=== PATIENT | male | born 1940 | race Caucasian/White ===

== ENCOUNTER → 2018-05-11 | Outpatient (REF) | payer MEDICARE, OTHER ==
[2018-05-11 19:32] LABS: RETIC HEMOGLOBIN EQUIVALENT 35.4 pg (24-36); RETICULOCYTE # 52.2 10^9/L (17-77); RETICULOCYTE % 1.2 % (0.5-1.5)
[2018-05-11 19:40] LABS: FERRITIN 60 NG/ML (26-388); IRON (FE) 109 UG/DL (65-175); PERCENT SATURATION 34.2 % (19.7-50.0); TOTAL IRON BINDING CAPACITY 319 UG/DL (250-450)
[2018-05-11 19:49] LABS: FOLATE > 24.0 NG/ML; VITAMIN B12 LEVEL 755 PG/ML
== END ==
LOC: M LAB REF 19:06
DX: D64.9 Anemia, unspecified (principal)
CPT/HCPCS: 82746

== ENCOUNTER → 2019-06-06 | Outpatient (CLI) | payer MEDICARE, OTHER ==
[~2019-06-06] MED LIST: ASPI81TA85 PO; ATOR1TAB21 PO; D32000CA PO; HYDR12.55 PO; IRBE150T12 PO; METO1TAB33 PO; OMEP-218 PO; TAMS1CAP17 PO
--- NOTE | 2019-06-08 15:42 | RADONC ---
RADIATION ONCOLOGY CONSULTATION NOTE DATE: 06/06/2019 CHART NUMBER: [id number] DIAGNOSIS: Prostate cancer. STAGE: II B, [id number], [place] score 7 (3-4), grade group II, PSA 5.82. ECOG PERFORMANCE STATUS: 0. CONSULTATION NOTE: Mr. Castillo is a very pleasant, 79-year-old white male with the diagnosis of a stage II B, [id number] moderate to poorly differentiated, Brandon score 7 (3-4) adenocarcinoma of the prostate with initial PSA level of 5.82 who is presenting to us today for discussion of definitive external beam radiation therapy with IMRT/IGRT. HISTORY OF PRESENT ILLNESS: The patient was in his usual state of health who was found to have an elevated PSA level, which reached 5.82 on 02/01/2019. On 05/11/2019, the patient underwent prostatic needle biopsy and pathology revealed a Brandon score 7 3-4) adenocarcinoma of the prostate. Prostatic adenocarcinoma involved both left and right lobe sections of the prostate and perineural invasion was identified. The patient had a long discussion with Dr. Lawrence and has decided he wanted radiation therapy rather than surgery and is now presenting for discussion of IMRT radiation therapy. PAST MEDICAL HISTORY: The patient's past medical history is positive for arthritis and hypertension. 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 He has hypercholesterolemia. In the past, he had an appendectomy and a cholecystectomy. ALLERGIES: The patient has NO KNOWN DRUG ALLERGIES. SOCIAL HISTORY: The patient had smoked two packs of cigarettes per day for approximately 19. He quit approximately 40 years ago. He does not abuse alcohol. FAMILY HISTORY: The patient's family history is positive for a mother with stomach cancer, a sister with breast cancer and two brothers with lung cancer. REVIEW OF SYSTEMS: The patient's review of systems is positive for some hearing loss and decreased energy but is otherwise noncontributory. Denies nausea, vomiting, fevers, chills, night sweats, diplopia, headaches, anxiety or depression, anorexia, weight loss, visual disturbances, chest pain, urinary or bowel difficulties, bone pain, or neurological problems. PHYSICAL EXAMINATION: The patient is a well-developed, well-nourished male in no acute distress. HEENT exam is normocephalic, atraumatic. Extraocular movements are intact. There is no palpable cervical, supraclavicular, infraclavicular, axillary, or inguinal lymphadenopathy present. Lungs are clear to auscultation and percussion. Heart has a regular rate and rhythm. Abdomen is benign with no hepatosplenomegaly, masses, or tenderness. Rectal examination reveals a normal anal sphincter tone. His prostate is smooth with no evidence of nodularity. Skeletal examination reveals no tenderness to pressure or percussion of the bony skeleton. Extremities reveal no clubbing, cyanosis, or edema. Neurologic exam is grossly intact, as is the remainder of the physical examination. MEDICAL NECESSITY: IMRT/IGRT is clinically indicated for the highly conformal dose planning required. The target volume is in close proximity to critical structures, such as the rectum, bladder, small bowel, and femoral heads. The volume of interest must be covered with narrow margins to adequately protect immediately adjacent structures. The plan requires interpretation of complex testing such as CT localization. As noted above, special planning (IMRT) and localizing (IGRT) is required and essential to maximally protect sensitive normal tissue structures which cannot be accomplished using conventional 3-dimensional planning. Clearly, the patient is a candidate for external beam radiation therapy and I have so informed him. I have discussed with the patient in detail the potential benefits as well as possible acute and chronic sequelae of external beam radiation therapy. We discussed logistics of treatment planning, simulation and subsequent fractionated daily radiation treatments. We are sending the patient back to Dr. Lawrence for placement of fiducial markers and radiation treatment planning will begin subsequently. Thank you for allowing us to participate in the care of this very pleasant gentleman. If I could be of any further assistance or provide you any information, please free to contact me anytime. As always, warm regards.
== END ==
LOC: M ONCR 08:47
PROVIDERS: ATTEND Radiology Radiation Oncology
DX: C61 Malignant neoplasm of prostate (principal)

== ENCOUNTER → 2019-08-17 | Outpatient (RCR) | payer MEDICARE, OTHER ==
--- NOTE | 2019-07-19 08:01 | RADONC ---
RADIATION ONCOLOGY SIMULATION NOTE DATE: 07/18/2019 CHART NUMBER: [id number] Mr. Castillo was taken to the CT scan for CT simulation of his prostate field. CT was accomplished without difficulty or discomfort. Radiation treatment planning is underway and radiation treatments will begin subsequently. An immobilization device was created and will be used throughout the course of treatment. It was created without difficulty or discomfort. I was physically present throughout the course of CT simulation.
--- NOTE | 2019-07-31 16:28 | RADONC ---
RADIATION ONCOLOGY PROGRESS NOTE DATE: 07/31/2019 CHART NUMBER: [id number] PROGRESS NOTE: Mr. Castillo is presently at a dose of 900 cGy to his prostate and is tolerating treatments quite well at this point with no complaints related to his radiation therapy. He is having no significant urinary or bowel difficulties and no bone pain. REVIEW OF SYSTEMS: The patient's review of systems is noncontributory. Denies nausea, vomiting, fevers, chills, night sweats, diplopia, headaches, anxiety or depression, anorexia, weight loss, visual disturbances, chest pain, urinary or bowel difficulties, bone pain, or neurological problems. PHYSICAL EXAMINATION: The patient's skin is in good condition with no evidence of radiation change present. There is no moist or dry desquamation. The remainder of his physical exam remains unchanged. Mr. Castillo is tolerating treatments quite well and radiation will continue as scheduled.
[2019-08-03 16:09] LABS: APPEARANCE, URINE CLEAR (CLEAR); BACTERIA, URINE AUTO NEGATIVE (NEGATIVE); BILIRUBIN, URINE AUTO NEGATIVE (NEGATIVE); BLOOD, URINE BLOOD NEGATIVE (NEGATIVE); COLOR, URINE YELLOW (YELLOW); GLUCOSE, URINE (UA) AUTO NEGATIVE (NEGATIVE); KETONE, URINE AUTO NEGATIVE (NEGATIVE); LEUKOCYTE ESTERASE, URINE AUTO NEGATIVE (NEGATIVE); MUCUS, URINE SMALL (NEGATIVE); NITRITE, URINE AUTO NEGATIVE (NEGATIVE); PROTEIN, URINE AUTO NEGATIVE (NEGATIVE); RBC, URINE AUTO 2 /HPF (0-3); SQUAMOUS EPITHELIAL CELL UR AU 0 /HPF (0-6); UROBILINOGEN, URINE AUTO 0.2 mg/dL (0.0-2.0); WBC, URINE AUTO 2 /HPF (0-3)
--- NOTE | 2019-08-12 08:34 | RADONC ---
RADIATION ONCOLOGY PROGRESS NOTE DATE: 08/10/2019 CHART NUMBER: [id number] DIAGNOSIS: Prostate cancer. STAGE: IIB, [id number], [place] score 7 (3+4), grade group 2, PSA 5.82. ECOG PERFORMANCE STATUS: 0 PROGRESS NOTE: Mr. Castillo, with a diagnosis of adenocarcinoma of the prostate, was asked to see us earlier this week. He was experiencing severe, fairly agonizing pain and having difficulty sleeping. We initiated a course of prednisone along with initiating Flomax both in the morning and in the evening. He was, prior to that, taking Flomax in the morning time and really getting no significant relief from this medication. Therefore, in addition to increasing the Flomax to morning and evening, we started a course of prednisone 5 mg to be taken with his Flomax in the morning and in the evening. He was asked to see us yesterday on 08/10 2019, and he had developed significant dysuria but not until after 8 hours after having taken his medications. I instructed him to increase the prednisone to three times a day or every 8 hours. He did not increase the Flomax but left this medication at one tablet in the morning and in the evening. In addition, I suggested that he take Pyridium since now he was having severe burning in the urine. He was at least encouraged that he got 8 hours of relief with the utilization of the prednisone, but after 8 hours, again, he was back to having pain upon urination and severe agonizing burning. Now, he is scheduled to take Flomax, a 5 mg tablet of prednisone, and his Pyridium in the a.m. and, again, the prednisone in the p.m. as well as Flomax but in the midday to take his prednisone and initiate Pyridium. If this controls his burning and hopefully the other issues he was experiencing with pain and frequent urination, then we will keep him on this regimen for approximately 10 days and then wean him off the dexamethasone. If his burning persists, then he should probably increase the Pyridium but, again, I instructed him to not alter the medication anymore until he sees if he is going to get significant relief. It appears that the initiation of the prednisone did allow him to have at least 8 hours of relief which is significant. The only a added medications were an additional 5 mg of prednisone in the midday and Pyridium.
--- NOTE | 2019-08-15 07:31 | RADONC ---
RADIATION ONCOLOGY PROGRESS NOTE DATE:08/14/2019 CHART NUMBER: [id number] Mr. Castillo is presently at a dose of 2700 cGy to his prostate and continues to have some urinary obstructive symptoms. He is presently taking prednisone three times a day as well as Pyridium twice a day and his Flomax 0.4 mg once a day. The patient reports that he is urinating at this time and does feel like he is emptying his bladder. In light of this we will continue with the present dosage scheduled. The patient's review of systems again is positive for some urinary obstructive symptoms which is being managed with Pyridium, Flomax and prednisone. His review of systems is otherwise noncontributory. He denies nausea, vomiting, fevers, chills, night sweats, diplopia, headaches, anxiety or depression, anorexia, weight loss, visual disturbances, chest pain, urinary or bowel difficulties, bone pain, or neurological problems. PHYSICAL EXAMINATION: The patient's skin is in good condition with no evidence of moist or dry desquamation. The remainder of his physical exam remains unchanged. Mr. Castillo is tolerating treatments quite well and radiation will continue as scheduled.
[~2019-08-17] MED LIST changes: +PRED5TA PO
== END ==
LOC: M ONCR 07-18 13:35
PROVIDERS: ATTEND Radiology Radiation Oncology
DX: C61 Malignant neoplasm of prostate (principal); Z79.899 Other long term (current) drug therapy

== ENCOUNTER 2019-09-13 14:50 | Outpatient (RCR) | payer MEDICARE, OTHER ==
--- NOTE | 2019-08-22 07:10 | RADONC ---
RADIATION ONCOLOGY PROGRESS NOTE: DATE: 08/21/2019 CHART NUMBER: [id number] Mr. Rishi Castillo with a diagnosis of adenocarcinoma of the prostate is currently receiving local regional radiotherapy and he has achieved a dose of 3600 cGy. He appears to be tolerating his radiotherapy fairly well at the current time. He was complaining of significant obstructive symptoms and pain. We started him on Flomax, prednisone 5 mg t.i.d., and some peridium and the combination of medications has helped him significantly. He has asked me for a refill of the prednisone and I will accommodate him. Otherwise, he has no new problems related to his disease or treatments. He specifically denies any nausea, vomiting, diarrhea, dysuria, hematuria or blood per rectum. His energy level is adequate. He is able to maintain most day-to-day activities. EXAMINATION FINDINGS: The skin within the irradiated volume shows neither erythema nor desquamation. There is no palpable peripheral lymphadenopathy in the cervical, supraclavicular, axillary or inguinal lymph node chains. The lungs are clear. Remainder of the physical examination is unchanged. IMPRESSION: Tolerating therapy well. PLAN: Treatments to continue with same medication and same radiation regimen.
--- NOTE | 2019-08-29 07:33 | RADONC ---
RADIATION ONCOLOGY PROGRESS NOTE DATE: 08/28/2019 CHART NUMBER: 19-125 Mr. Castillo is presently at a dose of 4500 cGy to his prostate and is tolerating treatments quite well at this point with no significant difficulties related to his radiation therapy. He is complaining of leg cramps at night. The patient's review of systems is positive for nightly leg cramps as well as urinary frequency at night but is otherwise noncontributory. He denies nausea, vomiting, fevers, chills, night sweats, diplopia, headaches, anxiety or depression, anorexia, weight loss, visual disturbances, chest pain, urinary or bowel difficulties, bone pain, or neurological problems. PHYSICAL EXAMINATION: The patient's skin is in good condition with no evidence of moist or dry desquamation. The remainder of his physical exam remains unchanged. Mr. Castillo is tolerating treatments quite well and radiation will continue as scheduled.
--- NOTE | 2019-09-05 11:24 | RADONC ---
RADIATION ONCOLOGY PROGRESS NOTE DATE: 09/04/2019 CHART NUMBER: [id number] Mr. Castillo is presently at a dose of 5400 cGy to his prostate and seminal vesicles and is tolerating treatments quite well at this point with no significant difficulties related to his radiation therapy. His urinary and bowel problems have improved. He has reduced the number prednisone pills he is taking from three to two, and overall he is feeling better. REVIEW OF SYSTEMS: The patient's review of systems is noncontributory. He denies nausea, vomiting, fevers, chills, night sweats, diplopia, headaches, anxiety or depression, anorexia, weight loss, visual disturbances, chest pain, urinary or bowel difficulties, bone pain or neurological problems. PHYSICAL EXAMINATION: The patient's skin is in good condition with no evidence of moist or dry desquamation. The remainder of his physical exam remains unchanged. Mr. Castillo is tolerating treatments quite well and radiation will continue as scheduled.
--- NOTE | 2019-09-13 09:07 | RADONC ---
RADIATION ONCOLOGY PROGRESS NOTE DATE OF SERVICE: 09/11/2019 CHART NUMBER: [id number] Mr. Castillo is presently at a dose of 6300 cGy to his prostate and is tolerating treatments quite well at this point with no complaints related to his radiation therapy. He is having no urinary or bowel difficulties and no bone pain. The patient's review of systems is noncontributory. Denies nausea, vomiting, fevers, chills, night sweats, diplopia, headaches, anxiety or depression, anorexia, weight loss, visual disturbances, chest pain, urinary or bowel difficulties, bone pain, or neurological problems. PHYSICAL EXAMINATION The patient's skin is in good condition with no evidence of moist or dry desquamation. The remainder of his physical exam remains unchanged. Mr. Castillo is tolerating treatments quite well and radiation will continue as scheduled.
== END 2019-09-16 ==
LOC: M ONCR 14:50
PROVIDERS: ATTEND Radiology Radiation Oncology
DX: C61 Malignant neoplasm of prostate (principal)

== ENCOUNTER 2019-09-26 07:52 | Outpatient (RCR) | payer MEDICARE, OTHER ==
--- NOTE | 2019-09-20 07:24 | RADONC ---
RADIATION ONCOLOGY DATE: 09/19/2019 Mr. Castillo is a 79-year-old gentleman who carries a diagnosis of prostate CA. He has currently received a dose of 7020 cGy in 30 fractions. He tolerates treatment very well without unusual side effects except nocturia four times, however that is his normal. His bowel movements are regular. Treatment will continue as planned. MTDD
--- NOTE | 2019-09-26 00:19 | RADONC ---
RADIATION ONCOLOGY PROGRESS NOTE DATE: 09/25/2019 CHART NUMBER: 19-125 Mr. Castillo is presently at a dose of 7740 cGy to his prostate and overall is tolerating treatments quite well with no significant difficulties related to his radiation therapy other than some fatigue, as well as increased stool frequency and urgency. The patient's review of systems is positive for some fatigue and increased stool urgency but is otherwise generally noncontributory. He denies nausea, vomiting, fevers, chills, night sweats, diplopia, headaches, anxiety or depression, anorexia, weight loss, visual disturbances, chest pain, urinary difficulties, bone pain, or neurological problems. PHYSICAL EXAMINATION: The patient's skin is in good condition with no evidence of moist or dry desquamation. The remainder of his physical exam remains unchanged. Mr. Castillo is tolerating treatments quite well and radiation will continue as scheduled.
--- NOTE | 2019-09-26 09:58 | RADONC ---
RADIATION ONCOLOGY TREATMENT SUMMARY DATE OF SERVICE: 09/26/2019 CHART NUMBER: [id number] DIAGNOSIS: Prostate cancer. STAGE: Stage II B, [id number], [place] score 7 (3+4) grade group II, PSA 5.82. ECOG PERFORMANCE STATUS: 0. TREATMENT SUMMARY: Mr. Castillo is a very pleasant 79-year-old white male with the diagnosis of a stage II B, [id number] moderate to poorly differentiated Gotebo score 7 (3+4) adenocarcinoma of prostate with initial PSA level of 5.82 who presented to us for consideration of definitive external beam radiation therapy with IMRT / IGRT. We treated the patient to his prostate for a total dose of 7920 cGy delivered in 44 fractions of 180 cGy each over 62 elapsed days from 07/25/2019 through 09/26/2019. The patient's prostate was treated on the linear accelerator utilizing 6 MV photon beam via IMRT / IGRT. We initially treated the prostate and seminal vesicles to a dose of 5400 cGy subsequently delivered in additional 2520 cGy to the prostate itself bringing it to a total dose once again of 7920 cGy. Mr. Castillo tolerated his treatments quite well and was able to complete therapy as prescribed without difficulties. I have scheduled the patient to see me again in 1 month for further followup. He will also continue to be followed by his other physicians as well. cc: MD Jacob Cramer MD
== END 2019-10-17 ==
LOC: M ONCR 07:52
PROVIDERS: ATTEND Radiology Radiation Oncology
DX: C61 Malignant neoplasm of prostate (principal)

== ENCOUNTER → 2020-02-26 | Outpatient (REF) | payer MEDICARE, OTHER ==
[~2020-02-26] MED LIST changes: -IRBE150T12 PO; +IRBE150T7 PO
[2020-02-26 18:02] LABS: FERRITIN 204 NG/ML (26-388); IRON (FE) 89 UG/DL (65-175); PERCENT SATURATION 30.6 % (19.7-50.0); TOTAL IRON BINDING CAPACITY 291 UG/DL (250-450)
[2020-02-26 18:06] LABS: FOLATE > 24.0 NG/ML; VITAMIN B12 LEVEL 654 PG/ML
== END ==
LOC: M LAB REF 16:58
PROVIDERS: ATTEND Family Medicine
DX: R53.83 Other fatigue (principal); D64.9 Anemia, unspecified

== ENCOUNTER → 2020-04-02 | Outpatient (CLI) | payer MEDICARE, OTHER ==
--- NOTE | 2020-04-04 11:25 | RADONC ---
RADIATION ONCOLOGY FOLLOWUP NOTE DATE: 04/02/2020 CHART #: [id number] DIAGNOSIS: Prostate cancer. STAGE: II B, T2c, N0, M0, [place] score 7 (3-4), grade group II, PSA 5.82. ECOG PERFORMANCE STATUS: 0. FOLLOWUP NOTE: Mr. Castillo is a very pleasant, 80-year-old white male with the diagnosis of a stage II B, T2c, N0, M0, moderate to poorly differentiated Brandon score 7 (3-4) adenocarcinoma of the prostate with initial PSA level of 5.82 who is presenting to us today for routine followup visit 6 months post completion of external beam radiation therapy. The patient presents today reporting that he is doing quite well with no complaints at this time related to his radiation therapy or disease. He has no urinary or bowel difficulties and no bone pain. REVIEW OF SYSTEMS: The patient's review of systems is noncontributory. Denies nausea, vomiting, fevers, chills, night sweats, diplopia, headaches, anxiety or depression, anorexia, weight loss, visual disturbances, chest pain, urinary or bowel difficulties, bone pain, or neurological problems. PHYSICAL EXAMINATION: Physical examination was deferred at this point secondary to COVID-19 precautions. ASSESSMENT: The patient is clinically KWAKU at this time and will be seen by us again in July for further followup. We had initially planned on seeing him in , but the patient is leaving for [place] in mid July. A new PSA will be done at that time. A recent PSA last week was noted to be less than 0.13. I do not actually have a copy of the report at this time, we are attempting to obtain it from Dr. Elena's office. cc: MD Jacob Cramer MD
== END ==
LOC: M ONCR 14:24
PROVIDERS: ATTEND Radiology Radiation Oncology
DX: C61 Malignant neoplasm of prostate (principal)

== ENCOUNTER → 2020-07-24 | Outpatient (CLI) | payer MEDICARE, OTHER ==
[~2020-07-24] MED LIST changes: -ASPI81TA85 PO; +ASPI81TA86 PO
--- NOTE | 2020-07-24 14:35 | RADONC ---
Radiation Oncology Hx/FUP Radiation Oncology Hx/FUP Date of Service: Jul 24, 2020 Pt Identifier Rishi Castillo is a 80 year old male seen for a followup visit today at the department of radiation oncology for a history of favorable intermediate risk prostate cancer T2b Brandon 3+4 PSA 5.6 he completed EBRT to 76.2 Gy in 37 fractions on 09/26/19. Diagnosis/Treatment History Oncologic History As above Interval History Feels well. On flomax 0.8 mg QHS from PCP. Nocturia 1-2x. No daytime frequency or urgency. No diarrhea or BRBPR. Has regular daily BM. Has no erectile function, not bothersome to him. Energy level good appetite and weight stable. Going to [place] end of month. Seeing urologist next spring. Current Therapy Surveillance Stage Favorable intermediate risk prostate cancer Social History: Former smoker quit 45 years ago. Former drinker, quit drinking 6 years ago. Allergies / Meds Allergies: Coded Allergies: No Known Allergies (Verified , 04/23/03) Uncoded Allergies: NKA (Allergy, Unknown, 04/23/03) Home Meds Active Scripts Prednisone (Prednisone) 5 Mg Tablet, 5 MG PO Q8H, #40 TAB Prov:SANTOSH EMMANUEL MD 08/11/19 Reported Medications Omeprazole (Omeprazole) 20 Mg Capsule., 1 CAP PO DAILY for 30 Days, #30 CAP 06/06/19 Cholecalciferol (Vitamin D3) (Vitamin D3) 2,000 Unit Capsule, 1 CAP PO DAILY for 30 Days, #30 CAP 06/06/19 Aspirin (Aspir 81) 81 Mg Tablet., 1 TAB PO DAILY for pain for 30 Days, #30 TAB 06/06/19 Metoprolol Succinate (Metoprolol Succinate) 100 Mg Tab.er.24h, 100 MG PO DAILY 06/06/19 Tamsulosin Hcl (Tamsulosin HCl) 0.4 Mg Capsule, 0.4 MG PO DAILY 06/06/19 Atorvastatin Calcium (Atorvastatin Calcium) 20 Mg Tablet, 20 MG PO DAILY 06/06/19 Irbesartan (Irbesartan) 150 Mg Tablet, 150 MG PO DAILY 06/06/19 Hydrochlorothiazide (Hydrochlorothiazide) 12.5 Mg Tablet, 12.5 MG PO DAILY 06/06/19 Review of Systems Review of Systems Constitutional: Denies: ROS Unabtainable, Chills, Fever, Malaise, Night Sweats, Weakness, Fatigue, Weight Loss, Lethargy, Normal appetite, Other symptoms Eyes: Denies: Pain, Vision change, Conjunctivae inflammation, Eyelid inflammation, Redness, Other HEENT: Denies: Head Aches, Ear Pain, Dysphagia, Sinus Congestion, Post Nasal Drip, Sore Throat, Epistaxis, Other Symptoms Skin: Denies: Rash, Lesions, Jaundice, Bruising, Other Breast: Denies: New Breast Lumps / Masses, Nipple Retraction, Nipple Discharge, Breast Skin Changes, Breast Pain or Tenderness, Other Breast Complaints Pulmonary: Denies: Dyspnea, Cough, Pleuritic Chest Pain, Other Symptoms Cardiovascular: Denies: Chest Pain, Palpitations, Orthopnea, Paroxysmal Noc. Dyspnea, Edema, Lt Headedness, Other Symptoms Gastrointestinal: Denies: Nausea, Vomiting, Abdominal Pain, Diarrhea, Constipation, Melena, Hematochezia, Other Symptoms Genitourinary: Denies: Dysuria, Frequency, Incontinence, Hematuria, Retention, Other Symptoms Hematologic: Denies: Bruising, Bleeding Excessively, Petecchia, Purpura, Enlarged Lymph Nodes, Other Hematologic Endocrine: Denies: Polydipsia, Polyphagia, Polyuria, Heat Intolerance, Cold Intolerance, Other Endocrine Sx Musculoskeletal: Denies: Neck pain, Shoulder pain, Arm pain, Back pain, Hand pain, Leg pain, Foot pain, Joint pain, Muscle pain, Spasms, Gout, Joint sweling, Muscle stiffness, Midthoracic pain, Other Psych: Denies: Mood Normal, Anxiety, Depression, Memory Issues, Thoughts of Self Harm, Anger, Thoughts of harming Other, Other Psych Physical Examination Vital Signs Wt 165lb T 98 P 78 RR 18 BP 126/74 O2 98% Pain 1 Fatigue 0 General Exam: Positive: Alert, Cooperative, No Acute Distress Eye Exam: Positive: PERRLA, EOMI ENT EXAM: Positive: Atraumatic Neck Exam: Positive: Supple Chest Exam: Positive: Clear to auscultation, Normal air movement Heart Exam: Positive: Rate Normal, Regular Rhythm Abdomen Exam: Positive: Normal bowel sounds, Soft; Negative: Tenderness Extremity Exam: Negative: Edema Skin Exam: Positive: Nl turgor and temperature Neuro Exam: Positive: Normal Gait, Normal Speech, Cranial Nerves 3-12 NL Psych Exam: Positive: Mental status NL, Mood NL; Negative: Anxiety Other Physical Findings Deferred exam d/t stable low PSA Diagnostic and Laboratory Diagnostic Review Radiologic images, relevant labs and pathology reports were personally reviewed and discussed with Mr. Castillo. 07/19/20 PSA 0.13 Assessment and Plan Impression Assessment Mr. Castillo is a 80 year old male seen for a followup visit today at the department of radiation oncology for a history of favorable intermediate risk prostate cancer T2b Brandon 3+4 PSA 5.6 he completed EBRT to 76.2 Gy in 37 fractions on 09/26/19. He is doing well with stable nocturia as his only urinary complaint. He has no late RT effects with respect to GI/ function. His PSA remains low. He will see his urologist upon returning to [facility] this Spring, thus I will see him in 1 year with a PSA check. Plan 1 year with PSA Mr. Castillo was encouraged to call with questions or concerns in the interim period. ABIMAEL TITUS MD Jul 24, 2020 14:35
== END ==
LOC: M ONCR 12:43
PROVIDERS: ATTEND General Practice
DX: C61 Malignant neoplasm of prostate (principal)

== ENCOUNTER → 2021-02-28 | Outpatient (CLI) | payer MEDICARE, OTHER | LOC: M LABSMTC 09:38 | PROVIDERS: ATTEND Anesthesiology Pain Medicine | DX: Z20.828 Contact with and (suspected) exposure to other viral communicable diseases (principal); Z11.59 Encounter for screening for other viral diseases ==

== ENCOUNTER → 2021-05-24 | Outpatient (CLI) | payer MEDICARE, OTHER ==
[~2021-05-24] MED LIST changes: +ASPI81CH33 PO; +CHOL25TA2 PO; +CVS2500C PO; +FAMO1TAB11 PO; +IRBE75TA4 PO; +METO1TAB7 PO
== END ==
LOC: M LABSMTC 09:36
PROVIDERS: ATTEND Anesthesiology
DX: Z01.812 Encounter for preprocedural laboratory examination (principal)

== ENCOUNTER 2021-05-29 09:24 | Day surgery (SDC) | payer MEDICARE, OTHER ==
[~2021-05-29] VITALS: Ht 160 cm; Wt 70.3 kg
[2021-05-29] MEDS ORDERED: propofoL 200 MG/20 ML VIAL As Ordered ONE (10:25)
[2021-05-29] MEDS ORDERED: LIDOCAINE 2% 100MG/5ML SDV (FOR ANES.) As Ordered ONE (10:25)
--- NOTE | 2021-05-29 10:55 | ROOR ---
Patient Name: Rishi Castillo Procedure Date: 05/29/2021 10:42 AM Date of : 1940 Age: 81 Room: [facility] Gender: Male Note Status: Finalized Procedure: Upper GI endoscopy Indications: Suspected esophageal reflux Providers: Tyrese Morris Jr, MD Referring MD: Jacob Elena MD Requesting Provider: Medicines: Propofol per Anesthesia Complications: No immediate complications. Procedure: Pre-Anesthesia Assessment: - Prior to the procedure, a History and Physical was performed, and patient medications and allergies were reviewed. The patient is competent. The risks and benefits of the procedure and the sedation options and risks were discussed with the patient. All questions were answered and informed consent was obtained. Patient identification and proposed procedure were verified by the physician and the nurse in the pre-procedure area and in the procedure room. Mental Status Examination: alert and oriented. Airway Examination: normal oropharyngeal airway and neck mobility. Respiratory Examination: clear to auscultation. CV Examination: normal. ASA Grade Assessment: II - A patient with mild systemic disease. After reviewing the risks and benefits, the patient was deemed in satisfactory condition to undergo the procedure. The anesthesia plan was to use moderate sedation / analgesia (conscious sedation). Immediately prior to administration of medications, the patient was re-assessed for adequacy to receive sedatives. The heart rate, respiratory rate, oxygen saturations, blood pressure, adequacy of pulmonary ventilation, and response to care were monitored throughout the procedure. The physical status of the patient was re-assessed after the procedure. The Endoscope was introduced through the mouth, and advanced to the second part of duodenum. The upper GI endoscopy was accomplished without difficulty. The patient tolerated the procedure well. Findings: The upper third of the esophagus, middle third of the esophagus and lower third of the esophagus were normal. A small hiatal hernia was present. The gastroesophageal junction, gastric antrum, prepyloric region of the stomach and pylorus were normal. Diffuse moderate inflammation characterized by congestion (edema), erythema, friability and granularity was found in the gastric fundus and in the gastric body. Biopsies were taken with a cold forceps for histology. The duodenal bulb, first portion of the duodenum and second portion of the duodenum were normal. Impression: - Normal upper third of esophagus, middle third of esophagus and lower third of esophagus. - Small hiatal hernia. - Normal gastroesophageal junction, antrum, prepyloric region of the stomach and pylorus. - Gastritis. Biopsied. - Normal duodenal bulb, first portion of the duodenum and second portion of the duodenum. Recommendation: - Discharge patient to home (ambulatory). - Return to my office as previously scheduled. Procedure Code(s): --- Professional --- 98879, Esophagogastroduodenoscopy, flexible, transoral; with biopsy, single or multiple Diagnosis Code(s): --- Professional --- K44.9, Diaphragmatic hernia without obstruction or gangrene K29.70, Gastritis, unspecified, without bleeding CPT copyright 2019 [employer]. All rights reserved. The codes documented in this report are preliminary and upon assemblies and installations inspector review may be revised to meet current compliance requirements. Tyrese Morris MD Tyrese Morris Jr, MD 05/29/2021 10:55:15 AM Electronically signed by Tyrese Morris Jr, MD Number of Addenda: 0 Note Initiated On: 05/29/2021 10:42 AM Estimated Blood Loss: Estimated blood loss: none.
--- NOTE | 2021-05-29 11:13 | ROOR ---
Patient Name: Rishi Castillo Procedure Date: 05/29/2021 10:43 AM Date of : 1940 Age: 81 Room: [facility] Gender: Male Note Status: Finalized Procedure: Colonoscopy Indications: Rectal bleeding Providers: Tyrese Morris Jr, MD Referring MD: Jacob Elena MD Requesting Provider: Medicines: Propofol per Anesthesia Complications: No immediate complications. Procedure: Pre-Anesthesia Assessment: - Prior to the procedure, a History and Physical was performed, and patient medications and allergies were reviewed. The patient is competent. The risks and benefits of the procedure and the sedation options and risks were discussed with the patient. All questions were answered and informed consent was obtained. Patient identification and proposed procedure were verified by the physician and the nurse in the pre-procedure area and in the procedure room. Mental Status Examination: alert and oriented. Airway Examination: normal oropharyngeal airway and neck mobility. Respiratory Examination: clear to auscultation. CV Examination: normal. ASA Grade Assessment: II - A patient with mild systemic disease. After reviewing the risks and benefits, the patient was deemed in satisfactory condition to undergo the procedure. The anesthesia plan was to use moderate sedation / analgesia (conscious sedation). Immediately prior to administration of medications, the patient was re-assessed for adequacy to receive sedatives. The heart rate, respiratory rate, oxygen saturations, blood pressure, adequacy of pulmonary ventilation, and response to care were monitored throughout the procedure. The physical status of the patient was re-assessed after the procedure. The Colonoscope was introduced through the anus and advanced to the cecum, identified by appendiceal orifice and ileocecal valve. The colonoscopy was performed without difficulty. The patient tolerated the procedure well. The quality of the bowel preparation was adequate. Findings: The recto-sigmoid colon, descending colon, cecum, appendiceal orifice and ileocecal valve appeared normal. A few polyps were found in the sigmoid colon, transverse colon and ascending colon. The polyps were diminutive in size. These polyps were removed with a cold snare. Resection and retrieval were complete. A few small and large-mouthed diverticula were found in the sigmoid colon. Scattered moderate inflammation characterized by adherent blood, congestion (edema) and friability was found in the rectum. Impression: - The recto-sigmoid colon, descending colon, cecum, appendiceal orifice and ileocecal valve are normal. - A few diminutive polyps in the sigmoid colon, in the transverse colon and in the ascending colon, removed with a cold snare. Resected and retrieved. - Diverticulosis in the sigmoid colon. 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 Recommendation: - Discharge patient to home (ambulatory). - Return to my office as previously scheduled. Procedure Code(s): --- Professional --- 04869, Colonoscopy, flexible; with removal of tumor(s), polyp(s), or other lesion(s) by snare technique Diagnosis Code(s): --- Professional --- K63.5, Polyp of colon K62.7, Radiation proctitis K62.5, Hemorrhage of anus and rectum K57.30, Diverticulosis of large intestine without perforation or abscess without bleeding CPT copyright 2019 [employer]. All rights reserved. The codes documented in this report are preliminary and upon hospital coder review may be revised to meet current compliance requirements. Tyrese Morris MD Tyrese Morris Jr, MD 05/29/2021 11:12:54 AM Electronically signed by Tyrese Morris Jr, MD Number of Addenda: 0 Note Initiated On: 05/29/2021 10:43 AM Estimated Blood Loss: Estimated blood loss: none.
[2021-05-29 11:41] VITALS: BP 123/77
== END 2021-05-29 11:43 | disposition home or self-care (01) ==
LOC: M OPP 09:24
PROVIDERS: ATTEND Surgery
DX: K63.5 Polyp of colon (principal); K62.7 Radiation proctitis; K57.30 Diverticulosis of large intestine without perforation or abscess without bleeding; K44.9 Diaphragmatic hernia without obstruction or gangrene; K29.70 Gastritis, unspecified, without bleeding; Z79.82 Long term (current) use of aspirin; Z79.899 Other long term (current) drug therapy; Z85.46 Personal history of malignant neoplasm of prostate; Z92.3 Personal history of irradiation

== ENCOUNTER → 2021-07-08 | Outpatient (CLI) | payer MEDICARE, OTHER ==
[~2021-07-08] MED LIST changes: +MESA1000; +MESA1000 PR
--- NOTE | 2021-07-08 11:48 | RADONC ---
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 He has developed radiation proctitis. Diagnosis/Treatment History Oncologic History As above. Recent data: PSA 07/04/21 0.13 07/19/20 0.13 05/29/21 Colonoscopy (Dr. Morris) Findings: The recto-sigmoid colon, descending colon, cecum, appendiceal orifice and ileocecal valve appeared normal. A few polyps were found in the sigmoid colon, transverse colon and ascending colon. The polyps were diminutive in size. These polyps were removed with a cold snare. Resection and retrieval were complete. A few small and large-mouthed diverticula were found in the sigmoid colon. Scattered moderate inflammation characterized by adherent blood, congestion (edema) and friability was found in the rectum. Impression: - The recto-sigmoid colon, descending colon, cecum, appendiceal orifice and ileocecal valve are normal. - A few diminutive polyps in the sigmoid colon, in the transverse colon and in the ascending colon, removed with a cold snare. Resected and retrieved. - Diverticulosis in the sigmoid colon. 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 Recommendation: - Discharge patient to home (ambulatory). - Return to my office as previously scheduled. Procedure Code(s): --- Professional --- 33844, Colonoscopy, flexible; with removal of tumor(s), polyp(s), or other lesion(s) by snare technique Diagnosis Code(s): --- Professional --- K63.5, Polyp of colon K62.7, Radiation proctitis K62.5, Hemorrhage of anus and rectum K57.30, Diverticulosis of large intestine without perforation or abscess without bleeding Interval History Minimal urinary bother, down to 0.4 mg flomax QHS, nocturia 2-3x which is pre treatment baselined. No daytime frequency or issues with stream/emptying. Was having intermittent small volume BRBPR. Had recent colonoscopy with Dr. Morris showing RT proctitis focal, started on mesalamine supp. x3 weeks (just completing this course), asks about extending it as his bleeding has essentially resolved. Going to [place] for the winter, desires GI referral in the [facility]. Appetite and energy levels excellent still working spare parts clerk, HVAC/electrical work. Current Therapy Surveillance Stage Favorable intermediate risk prostate cancer Social History: Former smoker quit 1970s Former drinker, quit drinking 2013 Allergies / Meds Allergies: Coded Allergies: No Known Allergies (Verified , 04/23/03) Home Meds Active Scripts Mesalamine (Mesalamine) 1,000 Mg Supp.rect, 1 SUP IA QHS for 28 Days, #28 SUP Prov:ABIMAEL TITUS MD 07/08/21 Reported Medications Famotidine (Famotidine) 20 Mg Tablet, 20 MG PO DAILYPRN PRN for HEARTBURN, TAB 05/19/21 Cyanocobalamin (Vitamin B-12) (Vitamin B12) 2,500 Mcg Tab.chew, 2500 MCG PO DAILY 05/19/21 Aspirin (Aspirin) 81 Mg Tab.chew, 81 MG PO DAILY 05/19/21 Cholecalciferol (Vitamin D3) (Vitamin D3) 25 Mcg Tablet, 50 MCG PO DAILY, TAB 05/19/21 Metoprolol Succinate (Metoprolol Succinate) 50 Mg Tab.er.24h, 50 MG PO DAILY 05/19/21 Irbesartan (Irbesartan) 75 Mg Tablet, 75 MG PO DAILY 05/19/21 Tamsulosin Hcl (Tamsulosin HCl) 0.4 Mg Capsule, 0.4 MG PO DAILY 06/06/19 Atorvastatin Calcium (Atorvastatin Calcium) 20 Mg Tablet, 20 MG PO DAILY 06/06/19 Hydrochlorothiazide (Hydrochlorothiazide) 12.5 Mg Tablet, 12.5 MG PO DAILY 06/06/19 Review of Systems Review of Systems Eyes: Denies: Pain HEENT: Denies: Head Aches Skin: Denies: Rash Pulmonary: Denies: Dyspnea, Cough Cardiovascular: Denies: Chest Pain, Palpitations Gastrointestinal: Reports: Hematochezia; Denies: Abdominal Pain, Diarrhea, Melena Genitourinary: Denies: Dysuria, Frequency, Incontinence, Hematuria Hematologic: Denies: Bruising Musculoskeletal: Denies: Neck pain, Back pain, Leg pain Neurological: Denies: Weakness, Numbness Psych: Reports: Mood Normal Physical Examination Vital Signs Wt 160 lbs T 98.4 P 58 RR 18 BP 139/84 O2 100% Pain 0 Fatigue 0 General Exam: Alert, Cooperative, No Acute Distress Eye Exam: PERRLA, EOMI ENT EXAM: Atraumatic Neck Exam: Supple Chest Exam: Clear to auscultation Heart Exam: Rate Normal, Regular Rhythm Abdomen Exam: Soft Male Exam: Normal Prostate Extremity Exam: Negative: Edema Skin Exam: Nl turgor and temperature Neuro Exam: Normal Gait, Normal Speech, Cranial Nerves 3-12 NL Psych Exam: Mental status NL Diagnostic and Laboratory Diagnostic Review Radiologic images, relevant labs and pathology reports were personally reviewed and discussed with Mr. Castillo. Assessment and Plan Impression Assessment Mr. 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 He has developed radiation proctitis. He is doing well overall despite the radiation proctitis he has developed. Mesalamine suppositories seem to be helpful, so I will extend his course another 3 weeks (to complete 6 weeks of daily treatment). I will also refer him to a GI provider in the [facility] area for consideration of laser or sclerotherapy, so that this does not progress. His PSA is well-controlled and stable, therefore will check again in 1 year. Performance Status ECOG 0 Plan Referral to [place] [facility] for RT proctitis Mesalamine supp. 3 additional weeks Follow up in 12 months with PSA check Mr. Castillo was encouraged to call with questions or concerns in the interim period. Billing Statement Total time of [25] minutes was spent preparing for the visit [2], obtaining HPI [5], examining the patient [2], reviewing diagnostic tests [1], discussing management options [7], coordinating care [2], and writing this note [6]. ABIMAEL TITUS MD Jul 08, 2021 11:44
== END ==
LOC: M ONCR 08:35
PROVIDERS: ATTEND General Practice
DX: C61 Malignant neoplasm of prostate (principal); K62.7 Radiation proctitis; Z79.82 Long term (current) use of aspirin; Z79.899 Other long term (current) drug therapy; Z87.891 Personal history of nicotine dependence; Z92.3 Personal history of irradiation

== ENCOUNTER → 2022-02-10 | Outpatient (CLI) | payer MEDICARE, OTHER ==
[~2022-02-10] MED LIST changes: +OMEP-173 PO; -OMEP-218 PO
== END ==
LOC: M ONCR 08:54
PROVIDERS: ATTEND General Practice
DX: C61 Malignant neoplasm of prostate (principal); K62.7 Radiation proctitis; Z87.891 Personal history of nicotine dependence

== ENCOUNTER → 2022-03-29 | Outpatient (CLI) | payer MEDICARE, OTHER | LOC: M LABSMTC 09:36 | PROVIDERS: ATTEND Anesthesiology | DX: Z01.812 Encounter for preprocedural laboratory examination (principal); Z20.822 Contact with and (suspected) exposure to COVID-19 ==

== ENCOUNTER 2022-04-02 07:30 | Day surgery (SDC) | payer MEDICARE, OTHER ==
[~2022-04-02] VITALS: Ht 160 cm; Wt 70.2 kg
[~2022-04-02 07:30] MED LIST changes: +LIDOCAINE 2% 100MG/5ML SDV (FOR ANES.) As Ordered ONE; +NS 1,000 ML IV ONE; +propofoL 200 MG/20 ML VIAL As Ordered ONE
[2022-04-02 09:30] VITALS: BP 150/78
== END 2022-04-02 09:42 | disposition home or self-care (01) ==
LOC: M OPP 07:30
PROVIDERS: ATTEND Internal Medicine Gastroenterology
DX: K62.7 Radiation proctitis (principal); K64.8 Other hemorrhoids; K55.20 Angiodysplasia of colon without hemorrhage; K62.5 Hemorrhage of anus and rectum; Z80.0 Family history of malignant neoplasm of digestive organs; Z80.1 Family history of malignant neoplasm of trachea, bronchus and lung; Z80.8 Family history of malignant neoplasm of other organs or systems; Z85.46 Personal history of malignant neoplasm of prostate; Z92.3 Personal history of irradiation; Z79.02 Long term (current) use of antithrombotics/antiplatelets; Z79.899 Other long term (current) drug therapy

== ENCOUNTER → 2022-05-31 | Outpatient (CLI) | payer MEDICARE, OTHER ==
[~2022-05-31] MED LIST changes: +GABA-1171; +HYDR12.55; -LIDOCAINE 2% 100MG/5ML SDV (FOR ANES.) As Ordered ONE; -NS 1,000 ML IV ONE; -propofoL 200 MG/20 ML VIAL As Ordered ONE
== END ==
LOC: M LABSMTC 10:48
PROVIDERS: ATTEND Anesthesiology
DX: Z01.812 Encounter for preprocedural laboratory examination (principal); Z20.822 Contact with and (suspected) exposure to COVID-19

== ENCOUNTER 2022-06-05 06:39 | Day surgery (SDC) | payer MEDICARE, OTHER ==
[~2022-06-05] VITALS: Ht 160 cm; Wt 68.5 kg
[~2022-06-05 06:39] MED LIST changes: +NS 1,000 ML IV ONE
[2022-06-05] MEDS ORDERED: LIDOCAINE 2% 100MG/5ML SDV (FOR ANES.) As Ordered ONE (06:46)
[2022-06-05] MEDS ORDERED: propofoL 200 MG/20 ML VIAL As Ordered ONE (06:46)
[2022-06-05] MEDS ORDERED: ATOR1TAB21 PO (07:14)
[2022-06-05] MEDS ORDERED: VITMTA PO (07:14)
[2022-06-05] MEDS ORDERED: FLOM0.4C39 PO (07:14)
[2022-06-05] MEDS ORDERED: HYDR12.55 PO (07:14)
[2022-06-05 08:18] VITALS: BP 149/79
== END 2022-06-05 08:18 | disposition home or self-care (01) ==
LOC: M OPP 06:39
PROVIDERS: ATTEND Internal Medicine Gastroenterology
DX: K62.7 Radiation proctitis (principal); K92.1 Melena; K55.21 Angiodysplasia of colon with hemorrhage; I10 Essential (primary) hypertension; Z79.02 Long term (current) use of antithrombotics/antiplatelets; Z79.899 Other long term (current) drug therapy; Z92.3 Personal history of irradiation; Z90.49 Acquired absence of other specified parts of digestive tract; Z80.0 Family history of malignant neoplasm of digestive organs; Z80.3 Family history of malignant neoplasm of breast; Z80.8 Family history of malignant neoplasm of other organs or systems; Z53.8 Procedure and treatment not carried out for other reasons

== ENCOUNTER → 2022-07-10 | Outpatient (CLI) | payer MEDICARE, OTHER ==
[~2022-07-10] MED LIST changes: +FLOM0.4C39 PO; -NS 1,000 ML IV ONE; +VITMTA PO
== END ==
LOC: M ONCR 09:40
PROVIDERS: ATTEND General Practice
DX: Z08 Encounter for follow-up examination after completed treatment for malignant neoplasm (principal); Z85.46 Personal history of malignant neoplasm of prostate; Z79.899 Other long term (current) drug therapy; Z87.891 Personal history of nicotine dependence; Z92.3 Personal history of irradiation